=== PATIENT | female | born 1995 | race Caucasian/White ===

== ENCOUNTER 2020-03-08 14:09 | Emergency (ER) ==
[2020-03-08 14:14] VITALS: BP 196/121
== END 2020-03-08 16:51 | disposition home or self-care (01) ==
LOC: EMEROOARM 14:09 → 1NENULAB 14:09 → EMEROOARM 15:00
PROVIDERS: ATTEND Obstetrics & Gynecology

== ENCOUNTER 2020-03-08 14:50 | Inpatient (IN) ==
[2020-03-08] MEDS ORDERED: Naloxone 0.4 MG/ML INJ IVP PRN (14:51)
[2020-03-08] MEDS ORDERED: Famotidine 20 MG/2 ML VIAL IVP PRN (14:51)
[2020-03-08] MEDS ORDERED: Metoclopramide 10 MG/2 ML VIAL IVP PRN (14:51)
[2020-03-08] MEDS ORDERED: Lidocaine 1% 20 ML MDV INFILT PRN (14:51)
[2020-03-08] MEDS ORDERED: Ondansetron 4 MG/2 ML VIAL IVP PRN (14:51)
[2020-03-08] MEDS ORDERED: Ringers Solution, Lactated 1,000 ML IVC SCH ×2 (15:00→21:30)
[2020-03-08] MEDS ORDERED: Lidocaine 1% 20 ML MDV ONE (15:05)
[2020-03-08 15:15] LABS: Basophils % 0.2 %; Hematocrit 40.6 % (35.3-44.9); Hemoglobin 12.9 g/dL (11.5-15.4); Immature Granulocytes % 0.8 % (0-4); Lymphocytes # 1.2 K/mcL (0.6-4.6); Mean Corpuscular HGB Conc 31.8 g/dL (31.6-35.5); Mean Corpuscular Hemoglobin 27.4 pg (28.0-33.3); Mean Corpuscular Volume 86.2 fL (83.0-100.0); Mean Platelet Volume 12.6 fL (9.4-12.4); Monocytes # 0.7 K/mcL (0.0-1.3); Neutrophils # 21.3 K/mcL (1.6-8.9); Platelet Count 282 K/mcL (140-400); Red Blood Count 4.71 M/mcL (3.82-4.97); Red Cell Distribution Width 14.5 % (11.5-14.5); White Blood Count 23.4 K/mcL (4.3-11.1)
[2020-03-08 15:25] LABS: Basophils # 0.1 K/mcL (0.0-0.2)
[2020-03-08 15:40] LABS: Alanine Aminotransferase 10 Units/L (7-52); Aspartate Amino Transferase 14 Units/L (13-39); BUN/Creatinine Ratio 16 (6-26); Blood Urea Nitrogen 11 mg/dL (6-20); Lactate Dehydrogenase 189 Units/L (140-271); Uric Acid 5.2 mg/dL (2.3-7.6); eGFR For African Americans > 60 (> 60); eGFR For Non-African Americans > 60 (> 60)
[2020-03-08 15:42] LABS: Hypersegmented Neutrophils Present (Not Present)
[2020-03-08 15:43] LABS: Platelet Estimate Normal (Normal)
[2020-03-08 16:03] LABS: Rubella IgG Antibody POSITIVE (POSITIVE); Varicella Zoster IgG Antibody Positive
[2020-03-08 16:10] LABS: Hepatitis B Surface Antigen Nonreactive (Nonreactive)
[2020-03-08] MEDS ORDERED: Magnesium Sulf 20 gm/SW 500mL 20 GM/500 ML IV.SOLN IVC SCH ×2 (16:30→21:30)
[2020-03-08 16:36] LABS: Amphetamine Screen,Urine Negative ng/mL (Cutoff=1000); Barbiturate Screen,Urine Negative ng/mL (Cutoff=200); Benzodiazepines Screen,Urine Negative ng/mL (Cutoff=200); Cannabinoid Screen,Urine Positive ng/mL (Cutoff = 50); Cocaine Screen,Urine Negative ng/mL (Cutoff= 300); Opiate Screen,Urine Negative ng/mL (Cutoff=300); Phencyclidine Screen,Urine Negative ng/mL (Cutoff=25)
[2020-03-08 16:38] LABS: HIV-1&2 Antibody & p24 Ag Nonreactive (Nonreactive)
[2020-03-08 17:37] LABS: Creatinine,Urine 388 mg/dL; Protein/Creatinine Ratio,Urine 8.73 mg/mg (0.00-0.20)
[2020-03-08] MEDS ORDERED: Measles/Mumps/Rubella Vacc 0.5 ML VIAL SQ PRN (17:58)
[2020-03-08] MEDS ORDERED: Oxytocin 20 units/ LR 1000 mL 20 UNIT/1,000 ML BAG IVC SCH (17:58)
[2020-03-08] MEDS ORDERED: Rho Immune Globulin 1,500 UNIT SYRINGE IM PRN (17:58)
[2020-03-08] MEDS ORDERED: Calcium Gluconate 1,000 MG/10 ML VIAL ONE (18:31)
[2020-03-09 04:21] LABS: Basophils % 0.2 %; Eosinophils # 0.1 K/mcL (0.0-0.6); Eosinophils % 0.3 %; Hematocrit 39.1 % (35.3-44.9); Hemoglobin 12.2 g/dL (11.5-15.4); Immature Granulocytes % 0.4 % (0-4); Lymphocytes # 2.4 K/mcL (0.6-4.6); Lymphocytes % 12.1 %; Mean Corpuscular HGB Conc 31.2 g/dL (31.6-35.5); Mean Corpuscular Hemoglobin 26.8 pg (28.0-33.3); Mean Corpuscular Volume 85.7 fL (83.0-100.0); Mean Platelet Volume 12.3 fL (9.4-12.4); Monocytes # 1.3 K/mcL (0.0-1.3); Monocytes % 6.7 %; Neutrophils # 15.7 K/mcL (1.6-8.9); Platelet Count 253 K/mcL (140-400); Red Blood Count 4.56 M/mcL (3.82-4.97); Red Cell Distribution Width 14.6 % (11.5-14.5); Segmented Neutrophils % 80.3 %; White Blood Count 19.5 K/mcL (4.3-11.1)
[2020-03-09] MEDS: Prenatal Vit/FA 1 EACH TABLET PO SCH (08:06)
[2020-03-09] MEDS: Ibuprofen 600 MG TABLET PO PRN ×3 (08:06→21:13)
[2020-03-09] MEDS ORDERED: Calcium Gluconate 1,000 MG/10 ML VIAL ONE (08:52)
[2020-03-09] MEDS: Acetaminophen 325 MG TABLET PO PRN ×2 (14:47→21:13)
[2020-03-10] MEDS: Prenatal Vit/FA 1 EACH TABLET PO SCH (09:08)
[2020-03-10] MEDS: Ibuprofen 600 MG TABLET PO PRN (09:09)
[2020-03-10] MEDS ORDERED: NIFEdipine XL (24 HR) 30 MG TAB.ER.24 PO SCH (12:15)
[2020-03-10 14:37] VITALS: BP 156/102
== END 2020-03-10 16:54 | disposition left against medical advice (07) | DRG 807 ==
LOC: 1NENULAB 14:50 → 1NENUOBS 17:57
PROVIDERS: ADMIT Obstetrics & Gynecology; ATTEND Obstetrics & Gynecology